=== PATIENT | male | born 1950 | race Caucasian/White ===

== ENCOUNTER 2018-06-04 06:59 | Day surgery (SDC) | payer MEDICARE ==
[~2018-06-04] VITALS: Ht 172.7 cm; Wt 61.4 kg
--- NOTE | ~2018-06-04 | OP ---
PATIENT NAME: LILI BLANK MEDICAL RECORD: [id number] :52 LOCATION:[facility] ADMISSION DATE: SURGEON: HARJIT MAHONEY MD DATE OF OPERATION: 06/04/2018 PREOPERATIVE DIAGNOSES: 1. Bilateral inguinal hernias. 2. Hypertension. 3. Arthritis. POSTOPERATIVE DIAGNOSES: 1. Bilateral inguinal hernias. 2. Hypertension. 3. Arthritis. PROCEDURE: Bilateral inguinal hernia repairs with medium PHS mesh. SURGEON: Harjit Mahoney MD REPORT OF PROCEDURE: The patient's abdomen and pelvis were prepped and draped in sterile fashion. The right side was approached first. An oblique incision was made above the inguinal ligament. Electrocautery was used to dissect through the subcutaneous tissues down to the external oblique fascia. This fascia was opened up to the external ring using electrocautery. The ilioinguinal nerve was found and high ligated. The spermatic cord was elevated and a Elia was placed around it. The patient had a very weak inguinal floor consistent with a direct hernia defect. The inguinal floor was opened up and the preperitoneal space was dissected back in all directions. A medium PHS mesh was inserted and sutured down on all sides using interrupted 0 Vicryls. The wound was then irrigated out with normal saline. The external oblique fascia was closed with running 2-0 Vicryl, Chanel's was closed with interrupted 3-0 Vicryl and the skin was closed with running subcutaneous 5-0 Monocryl. We then approached the left side. An oblique incision was made above the inguinal ligament. Electrocautery was used to dissect through the subcutaneous tissues down to the external oblique fascia. This fascia was opened up to the external ring using electrocautery. The ilioinguinal nerve was found and high ligated. The patient had an indirect hernia defect. This hernia sac was freed up from the spermatic cord and pushed back into the abdominal cavity. I then made an opening in the inguinal floor and opened up the preperitoneal space of Retzius. A medium PHS mesh was then inserted and sutured down on all 4 sides using multiple interrupted 0 Vicryls. The wound was then irrigated out with normal saline. The external oblique fascia was closed with running 2-0 Vicryl, Chanel's was closed with interrupted 3-0 Vicryl and the skin was closed with running subcutaneous 5-0 Monocryl. A total of 10 mL of 0.25% Marcaine with epinephrine was infused into the surrounding tissues and the wound was dressed appropriately. COMPLICATIONS: None. CONDITION: Stable. ANESTHESIA: General endotracheal and local. BLOOD LOSS: Minimal. OPERATIVE REPORT [id number] LILI BLANK TRANSINT:[id number] Voice Confirmation ID: [id number] DOCUMENT ID: [id number] HARJIT MAHONEY MD CC: COMFORT LAYNE MD [id number] DICTATION DATE: 06/04/18 1029 MORTGAGE PROCESSING CLERK: 06/04/18 1102 [facility] [address] [place] [address]
[~2018-06-04 06:59] MED LIST: CYCLOBENZAPRINE10 MG PO; FLOMAX0.4 MG PO
[2018-06-04 07:22] LABS: BASOPHILS 0.4 % (0-2); HEMATOCRIT 48.9 % (42.0-54.0); HEMOGLOBIN 16.8 g/dL (13.5-17.5); IMMATURE GRANULOCYTES 0.3 % (0-5); LYMPHOCYTES 35.3 % (15-50); MCH 32.2 pg (26.0-34.0); MCHC 34.4 g/dL (31.0-37.0); MCV 93.7 fL (80.0-100.0); MEAN PLATELET VOLUME 10.7 fL (7.4-10.4); MONOCYTES 13.5 % (2-11); NEUTROPHILS 48.5 % (40-80); PLATELET COUNT 281 10x3/uL (130-400); RBC 5.22 10x6/uL (4.20-6.10); RDW 12.7 % (11.5-14.5); WBC 9.9 10x3/uL (4.8-10.8)
[2018-06-04 07:47] LABS: ANION GAP 10.8 mmol/L (8-16); CALCIUM 9.2 mg/dL (8.5-10.1); CARBON DIOXIDE 30.7 mmol/L (21.0-32.0); CREATININE - SERUM 1.3 mg/dL (0.6-1.3); POTASSIUM - SERUM 4.5 mmol/L (3.5-5.1)
[2018-06-04 08:24] VITALS: BP 149/92; Ht 172.7 cm; Wt 61.4 kg
[2018-06-04] MEDS ORDERED: NORCO 10-325 TA1 TAB PO (10:25)
== END 2018-06-04 15:20 | disposition home or self-care (01) ==
LOC: D.OPS 06:59 → D.PAN 09:00 → D.OPS 09:00
PROVIDERS: Anesthesiology
DX: K40.20 Bilateral inguinal hernia, without obstruction or gangrene, not specified as recurrent (principal); I10 Essential (primary) hypertension; M19.90 Unspecified osteoarthritis, unspecified site; Z01.812 Encounter for preprocedural laboratory examination